=== PATIENT | male | born 1980 | race Caucasian/White ===

== ENCOUNTER 2016-03-25 19:49 | Emergency (ER) | payer SELFPAY ==
[~2016-03-25] VITALS: Ht 180.3 cm; Wt 79.5 kg
[2016-03-25 20:28] VITALS: BP 151/83; PULSE 94; RESP 18; O2SAT 97
[2016-03-25] MEDS ORDERED: 0.9% Sodium Chloride 1,000 ML IV ONE ×2 (20:36→23:10)
[2016-03-25] MEDS ORDERED: Ondansetron 2 mg/mL 2 mL Inj IVPUSH ONE ×2 (20:40→23:10)
--- NOTE | 2016-03-25 20:42 | ED.REPORT ---
HPI-Headache Date of Service Mar 25, 2016 ED Provider: Pranay Bender MD Pt is a healthy 35 year old male presenting to the ED complaining of neck pain and stiffness onset 5 days ago. Pt drove from [place] to [facility] 2 weeks ago, and had sudden onset neck pain, vomiting, headache and a cough 5 days ago. Pt reports that he was admitted to the hospital in [place] for 4 days, discharged last night, and had a spinal tap which showed viral meningitis so he was put on Acyclovir for 4 days. Pt reports that the pain is increasing and is unbearable. He denies a rash, eating any abnormal foods, or being bitten by anything while in [place]. The pt also reports some tongue itching due to accidentally biting into a peanut butter sandwich just prior to arrival. Nursing Notes Stated Complaint: POSSIBLE VIRAL MENINGITIS Chief Complaint: Headache Nursing Notes Reviewed: Yes Allergies: Coded Allergies: metoclopramide (Verified Allergy, Mild, distonic, 03/25/16) prochlorperazine (Verified Allergy, Mild, distonic, 03/25/16) Uncoded Allergies: PEANUTS (Allergy, Severe, rash, redness, tongue swelling, 03/25/16) Scheduled PRN Alprazolam (Xanax) 0.5 Mg Tablet 0.5 MG PO HS PRN PRN For Anxiety Ondansetron ODT (Zofran ODT) 4 Mg Tablet 8 MG PO TID PRN PRN For Nausea Oxycodone HCl/Acetaminophen 5-325 (Endocet 5-325) 1 Each Tablet 1-2 TABLET PO Q4H PRN PRN For Pain General Time Seen by MD: 20:21 Chief Complaint Headache, Neck pain Hx Obtained From: Patient Arrived By: Walk-in Sudden in Onset?: Yes Onset Occurred: 5 days ago Symptom Duration: Since onset Location: : Generalized Quality: Painful Severity: Current: Severe Severity: Maximum: Severe Recent Healthcare: Recent doctor visit, Recent hospitalization Similar Sx Previous: No Risk-Headache )( SAH Risk Stratification RF Statements: Risk factors reviewed, No risk factors )( IC Mass Risk Stratification RF Statements: Risk factors reviewed, No risk factors Past Medical History Past Medical History healthy Past Surgical History denies Smoking History Unknown if Ever Smoker Ambulatory Status Independent Review of Systems GI: Reports: Nausea, Vomiting Musculoskeletal: Reports: Neck pain (Stiffness) Skin: Denies Rash Neurologic: Reports: Headache Complete sys rev & neg: except as marked. Respiratory: Reports: Non-productive cough Physical Exam Initial Vital Signs Vital Signs (First) Date Time Temp Pulse Resp B/P Pulse Ox O2 Delivery O2 Flow Rate FiO2 03/25/16 20:28 36.7 94 18 151/83 97 Room Air Initial VS: Reviewed ENT: Mucous membranes moist, Conjunctiva normal, No scleral icterus Respiratory: Breath sounds normal, Clear to auscultation, No respiratory distress Extremities: Vascular intact, Neuro intact, No swelling, No tenderness Skin: Warm, Dry, No cyanosis Psychiatric: Mood/affect normal, Behavior normal, Normal thought content General/Constitutional: Awake, Alert, Well appearing Head / Eyes: Normocephalic, PERRL, No photophobia Neck: Atraumatic, Supple, No adenopathy Complains of GOSS/neck pain with flexion ENT: Airway patent, Mucous membranes moist, Pharynx NL Cardiovascular: Heart rate NL, Regular rhythm, Heart sounds NL, No gallop, No murmurs, No rubs Abdomen: BS normoactive Interpretation & Diagnostics Lab Results Interpretation Result Diagram: 03/25/16211403/25/162114 Test 03/25/16 21:15 03/25/16 22:09 White Blood Count 7.0th/mm3 (3.8-10.1) Red Blood Count 4.29mil/mm3 (4.40-5.80) Hemoglobin 11.6g/dL (13.8-17.2) Hematocrit 35.4% (41.0-50.0) Mean Corpuscular Volume 82.5fL (81-100) Mean Corpuscular Hemoglobin 27.0pg (27.0-35.0) Mean Corpuscular Hemoglobin Concent 32.8% (32.0-37.0) Red Cell Distribution Width 12.9% (12.3-15.4) Platelet Count 339bil/L (150-400) Neutrophils (%) (Auto) 56.2% (40-74) Lymphocytes (%) (Auto) 27.1% (14-46) Monocytes (%) (Auto) 16.3% (4-12) Eosinophils (%) (Auto) 0% (0-5) Basophils (%) (Auto) 0.1% (0-3) Erythrocyte Sedimentation Rate 36mm/hr (0-15) Sodium Level 138mEq/L (134-144) Potassium Level 3.8mEq/L (3.5-5.2) Chloride Level 100mEq/L (97-108) Carbon Dioxide Level 24mmol/L (18-29) Blood Urea Nitrogen 15mg/dL (6-20) Creatinine 0.70mg/dL (0.76-1.27) Estimat Glomerular Filtration Rate 135mL/min (>59) Glucose Level 119mg/dL (60-99) Lactic Acid Level 1.4mmol/L (0.4-2.0) Calcium Level 9.1mg/dL (8.5-10.1) Total Bilirubin 0.2mg/dL (0.0-1.2) Aspartate Amino Transf (AST/SGOT) 11U/L (0-50) Alanine Aminotransferase (ALT/SGPT) 6U/L (0-44) Alkaline Phosphatase 53U/L (25-150) Total Protein 7.1g/dL (6.4-8.4) Albumin 4.0g/dL (3.4-5.0) Hold Ott Top Tube Received (Received) CT Head Interpretation IMPRESSION: No abnormality is found on this head CT. Sinuses and mastoids are clear as well. Dictated by: Jerome Boyce M.D. on 03/25/2016 at 21:48 Study: Head CT no contrast Interpretation / Wet Read by: Interpret - Radiologist Re-Eval/Medical Decision Med Decision/Clinical Course 35-year-old male reporting a history of recent treatment for viral meningitis in [place]. He comes with no records. He appears nontoxic and is not photophobic he is not vomiting here in the emergency department. Other than a ESR elevated at 36 his labs are normal. He has refused a lumbar puncture. He has been persistent and consistent in requesting pain and anxiety medications and immediately escalates when these were declined. In addition to her initially he reports having exposed himself to peanuts just prior to coming in and having itching in his throat. His voice is normal I do not see any swelling in his throat or oropharynx. History he gives is of a partially treated viral meningitis. He appears well-hydrated and nontoxic his neck is supple and I I believe he can be treated as an outpatient. We will send him out on Percocet and Zofran, at the patient's insistence I have prescribed her 3 doses of Xanax. Re-Evaluation/Progress #1: Time of Eval: 22:13 )( Patient Status: Condition improved Re-Evaluation/Progress Note: Still complaining of headache. Reluctant to have LP. Requesting more pain medication. Re-Evaluation/Progress #2: Time of Eval: 22:37 )( Patient Status: Condition improved Re-Evaluation/Progress Note: Discussed plan for lumbar puncture. Pt now agrees with plan. Re-Evaluation/Progress #3: Time of Eval: 22:47 Re-Evaluation/Progress Note: Discussed LP with patient who is unhappy. States he has not had adequate treatment, can't keep anything down and is still in pain. Also reports anxiety. Signed consent for LP but now refusing to have test done. Angry at prospect of possible discharge. Attempted to de-escalate without success. Re-Evaluation/Progress #4: Time of Eval: 22:55 )( Patient Status: Condition improved Re-Evaluation/Progress Note: Discussed plan for PO challenge after pain medications and zofran. Re-Evaluation/Progress #5: Time of Eval: 00:36 Re-Evaluation/Progress Note: Pain improved, tolerated PO challenge. Wants more pain meds, wants xanax for home. Counseled Regarding: Diagnosis, Lab results, Need for follow-up, When/why to return to ED Discharge & Departure Impression: Primary Impression: Viral meningitis, unspecified Disposition: Home Discharge Condition All VS Reviewed: Yes Condition: Improved Patient Instructions: Viral Meningitis (ED) Additional Instructions: Emergency Department evaluation included area examination and labs. We gave IV fluids, pain and nausea medications. Use ondansetron 8 mg every 8 hours as needed for nausea and vomiting. Percocet 1-2 every 4 hours as needed for pain. Ibuprofen 800 mg every 8 hours as needed for pain. Xanax at beditme for sleep #3 prescribed. Rest and get frequent small amounts of liquids. Return to ED if getting worse. Referrals: [facility] 3 to 4 Days Scribe Attestation Portions of this note were transcribed by Kristen Reza. I, Dr. Bender personally performed the history, physical exam and medical decision-making; I reviewed and confirmed the accuracy of the information in the transcribed note. Signed by : Christofer Hernandez, 03/25/16 and 0013. copies to: [facility] Pranay Bender MD Mar 25, 2016 20:42 KRISTEN REZA Mar 25, 2016 20:48
[2016-03-25 21:27] LABS: BASOPHILS % (AUTO) 0.1 % (0-3); EOSINOPHILS % (AUTO) 0 % (0-5); MONOCYTES % (AUTO) 16.3 % (4-12); Mean Corpuscular Volume 82.5 fL (81-100); NEUTROPHILS % (AUTO) 56.2 % (40-74); Platelet Count 339 bil/L (150-400)
[2016-03-25] MEDS: HYDROmorphone 1 mg/mL Inj IVPUSH PRN ×3 (21:43→23:28)
--- NOTE | 2016-03-25 21:50 | DRSVH ---
PROCEDURE: CT BRAIN WITHOUT CONTRAST ([id number]) INDICATIONS: headache, suspect meningitis TECHNIQUE: Noncontrast 4.5 mm thick angled axial sections acquired from the foramen magnum to the vertex, with c oronal reformats. COMPARISON: None. FINDINGS: Image quality: Excellent. CSF spaces: Basal cisterns are patent. No extra-axial fluid collections. Ventricles are normal in size and shape. Brain: No midline shift. No intracranial masses or hemorrhage. Mejía-white matter interface is norm al. Skull and face: Calvarium and visualized facial bones are intact, without suspicious lesions. Sinuses: Visualized sinuses and mastoids are clear. IMPRESSION: No abnormality is found on this head CT. Sinuses and mastoids are clear as well. Dictated by: Jerome Boyce M.D. on 03/25/2016 at 21:48 Approved by: Jerome Boyce M.D. on 03/25/2016 at 21:48
[2016-03-25 22:03] LABS: ERYTHROCYTE SEDIMENTATION RATE 36 mm/hr (0-15)
[2016-03-25 22:15] VITALS: BP 138/65; PULSE 84; RESP 16; O2SAT 97
[2016-03-26] MEDS ORDERED: _oxyCODONE/APAP 5-325 mg Tablet PO PRN
[2016-03-26] MEDS ORDERED: _Ondansetron ODT 4 mg Tablet PO PRN
[2016-03-26] MEDS: HYDROmorphone 1 mg/mL Inj IVPUSH PRN
[2016-03-26] MEDS ORDERED: HYDROmorphone 0.5 mg/0.5 mL iSecure Syringe IVPUSH ONE (00:25)
[2016-03-26] MEDS ORDERED: ONDA4TAB9 PO (00:31)
[2016-03-26] MEDS ORDERED: OXYC-407 PO (00:31)
[2016-03-26] MEDS ORDERED: ALPR0.5T PO (00:31)
[2016-03-26 01:01] VITALS: BP 151/79; PULSE 94; RESP 16; O2SAT 97
== END 2016-03-26 01:02 | disposition home or self-care (01) ==
LOC: SED 19:49
DX: A87.9 Viral meningitis, unspecified (principal); Z88.8 Allergy status to other drugs, medicaments and biological substances
CPT/HCPCS: 36415; 70450; 80053; 83605; 85025; 85651; 87040; 96361; 96374; 96375; 96376; 99285; J1170; J1200; J2060; J2405; J7030